=== PATIENT | female | born 1995 | race Two or more races ===

== ENCOUNTER 2020-10-26 23:52 | Emergency (ER) | payer OTHER, SELFPAY ==
[~2020-10-26] VITALS: Ht 160 cm; Wt 67.2 kg
--- NOTE | 2020-10-27 00:16 | NUR ---
Patient presents to ER c/o bilat arm numbness since 1999. Patient states she was at a bar when it started after having two drinks. She also experienced bilat throbbing arm pain and a sensation in her chest. The throbbing and chest discomfort have since resided. Patient denies N/V. Patient is in NAD. Respirations even and unlabored.
[2020-10-27 00:46] LABS: BASOPHILS % (AUTO) 1 % (0-1); EOSINOPHILS % (AUTO) 3 % (1-7); LYMPHOCYTES % (AUTO) 36 % (22-44); MEAN CORPUSCULAR HEMOGLOBIN 31.5 pg (27.0-34.8); MEAN CORPUSCULAR HGB CONC 35.1 g/dL (32.4-35.8); MEAN PLATELET VOLUME 8.7 fL (7.4-10.4); MONOCYTES % (AUTO) 7 % (2-9); NEUTROPHILS % (AUTO) 53 % (42-75); PLATELET COUNT 202 x10^3/uL (130-400); RED BLOOD COUNT 4.21 x10^6/uL (3.82-5.3); RED CELL DISTRIBUTION WIDTH 11.5 % (9.6-15.2)
[2020-10-27 00:48] LABS: MD NO
[2020-10-27 00:59] LABS: ALBUMIN 3.8 g/dL (3.4-5.0); ANION GAP 8 mmol/L (5-15); CALCIUM 8.4 mg/dL (8.5-10.1); CHLORIDE 109 mmol/L (98-107); CREATININE 0.82 mg/dL (0.55-1.02)
[2020-10-27 01:49] VITALS: BP 130/88
== END 2020-10-27 01:51 | disposition home or self-care (01) ==
LOC: ED 10-27 01:15
DX: F43.0 Acute stress reaction (principal); R20.2 Paresthesia of skin; R94.31 Abnormal electrocardiogram [ECG] [EKG]
CPT/HCPCS: 36415; 80048; 82040; 84703; 85025; 93005; 99284